=== PATIENT | female | born 1975 | race Caucasian/White ===

== ENCOUNTER 2017-04-01 18:45 | Emergency (ER) | payer SELFPAY ==
--- NOTE | 2017-04-01 19:05 | ED NURSING NOTES ---
Clinical Report - Nurses [facility] [address] [place] [address] 04/01/2017 18:47 Patient: KAYKAY MORRIS TRIAGE Triage time 18:51. Acuity: LEVEL 4. Chief Complaint: RIGHT EAR PAIN. 18:56 04/01/17. Alert. No acute distress. SEPSIS SCREEN: Sepsis Screen. Negative (no infection suspected/documented). SRIKANTH COMA SCORE: Srikanth Coma Scale: 15- eyes open spontaneously (4); best verbal response- oriented x 4 (5); best motor response- obeys commands (6). --18:56 Mili Delong R.N. 18:51 04/01/17. BP: 148/78. HR: 103. RR: 15. O2 saturation: 95%. Temp: 98 F. Pain level now: 12/06. --18:56 Mili Delong R.N. Weight: 58.5 kg stated. Height/Length: 60 inches Per Patient. BMI: 25.2. --18:56 Mili Delong R.N. Medications None. --18:53 Mili Delong R.N. Allergies None. --18:54 Mili Delong R.N. History Historian: patient. [facility] This started today. ( Patient states she has had a cold over the past couple days. She reports she woke up this morning with R ear pain. She states she felt a "pop" in her ear this afternoon and "blood came out". She feels like "it is still leaking"). She has had a nasal discharge and ear drainage. ( cough). PAST MEDICAL HX: Immunizations: up-to-date. Denies current . SOCIAL HX: Heavy tobacco smoker- less than 1 pack per day. No alcohol use or drug use. FALL RISK ASSESSMENT: Fall risk assessment completed. No fall risk identified. NUTRITIONAL RISK ASSESSMENT: The nutritional risk assessment revealed no deficiencies. FUNCTIONAL ASSESSMENT: Functional assessment: no impairments noted. LEARNING NEEDS ASSESSMENT: The learning needs assessment revealed no barriers. SKIN INTEGRITY ASSESSMENT: Skin integrity risk assessment completed. No skin integrity risk identified. --18:56 Mili Delong R.N. PROBLEMS: Leukocytosis. Nausea. Depression. Prior Injury, Same Area. Muscle Strain, Upper Extremity. Acute Pain. Lower Extremity Pain. Tetanus Status. Abdominal Pain. LNMP - Last Normal Menstrual Period. Diverticulitis. Endometriosis. --18:54 Mili Delong R.N. ADDITIONAL SURGERIES: . Hysterectomy. Tubal Ligation. --18:54 Mili Delong R.N. Interventions ID band on patient. To treatment room. --18:56 Mili Delong R.N. PHYSICAL ASSESSMENT 18:58 04/01/17. Ambulatory to room. GENERAL / NEURO / PSYCH: Alert. Appears in no acute distress. HEENT: No facial asymmetry noted. Pupils equal, round and reactive to light. EOM intact. Erythema and pain upon movement of the right auricle. (no drainage noted). Pharynx within normal limits. RESPIRATORY: Respirations not labored. CVS: Capillary refill less than 2 seconds. SKIN: Skin is warm and dry. --18:58 Mili Delong R.N. NURSING PROGRESS NOTES 18:58 04/01/17. Two patient identifiers checked. Call light placed in reach. Bed placed in lowest position. Brakes of bed on. --18:58 Mili Delong R.N. DISPOSITION / DISCHARGE 19:08 04/01/17. No learning barriers present. Discharge instructions provided and reviewed with the patient. Reviewed warnings. Reviewed medication(s). Treatments reviewed. Reviewed referrals. Patient verbalized understanding. Written instructions provided in Lao. The patient was discharged home. She left the Emergency Department ambulatory and via private vehicle. Patient driving. --19:08 Mili Delong R.N. 18:51 04/01/17. BP: 148/78. HR: 103. RR: 15. O2 saturation: 95%. Temp: 98 F. Pain level now: 12/06. --19:08 Mili Delong R.N. Locked/Released at 04/01/2017 22:55 by Mili Delong R.N.
--- NOTE | 2017-04-01 19:05 | ED CLINICAL REPORT ---
Clinical Report - Physicians/Mid Levels [facility] [address] [place] [address] 04/01/2017 18:47 Patient: KAYKAY MORRIS Time Seen: 1900Jul 2016. Arrived- By private vehicle. Historian- patient. HISTORY OF PRESENT ILLNESS Chief Complaint: EARACHE. This started today. Location- right ear. The pain is described as moderate. (Patient Reports Cold Symptoms, Rhinorrhea Congested Dry Cough over the Last 10 Days, Has Been Taking [id number]-[id number] Medications, Symptoms Minimally Improving. Patient Reports Developed Right Ear Pain This Morning, with a Flushed Sensation to the Right Ear and Drainage.). REVIEW OF SYSTEMS No cough, difficulty breathing, vomiting or abdominal pain. All systems otherwise negative, except as recorded above. PAST HISTORY Problems: Leukocytosis. Nausea. Depression. Prior Injury, Same Area. Muscle Strain, Upper Extremity. Acute Pain. Lower Extremity Pain. Tetanus Status. Abdominal Pain. LNMP - Last Normal Menstrual Period. Diverticulitis. Endometriosis. Additional Surgeries: . Hysterectomy. Tubal Ligation. Medications: None. Allergies: None. SOCIAL HISTORY Smoker- current status unknown. No alcohol use or drug use. ADDITIONAL NOTES The nursing notes have been reviewed. PHYSICAL EXAM Vital Signs: 04/01/2017 18:51 BP: 148/78. HR: 103. RR: 15. O2 saturation: 95%. Temp: 98 F. Pain level now: 3/10. Appearance: Alert. Ear (left): No erythema of the external canal, swelling of the external canal, erythema of the tympanic membrane, fluid behind the tympanic membrane or bulging of the tympanic membrane. Throat: Mouth ulcerations present. Tonsillar exudate present. Pharynx normal. Ear (right): There is perforation of the tympanic membrane. No erythema of the external canal. Neck: Normal inspection. CVS: Normal heart rate and rhythm. Heart sounds normal. Respiratory: No respiratory distress. Breath sounds normal. Skin: Skin warm. Normal skin color. Neuro: Oriented X 3. PROGRESS AND PROCEDURES Course of Care: Discussed Water Precautions of the Right Ear, As Well As Antibiotic Use, and the Patient's Recent Illness. Lungs Clear. No Sinus Tenderness. Patient Very Stable. Follow up Outpatient As Needed. Patient Understands Need to f/u with Ear Nose and Throat. No mastoid tenderness. Patient is stable. The patient's symptoms are unchanged. Patient/family counseled. Disposition: Discharged. CLINICAL IMPRESSION Acute perforation of the right tympanic membrane. INSTRUCTIONS Drink plenty of fluids. Prescription Medications: Hydrocodone/APAP 5mg / 325mg: take 1 orally every 6 hours. Dispense ten (10). No refill. Floxin Otic: generic, To. R. Ear Instill 2 to 3 drops once daily until complete closure of perforation is confirmed . 10 mL. Follow-up: Follow up with a specialist. Understanding of the discharge instructions verbalized by patient. Follow-up with: Anand Bernardo MD, ENT, , [address], , [place], [id number] Follow up in three weeks. Call for an appointment. (Electronically signed by Kathie Moran P.A.-C 04/01/2017 19:26)
--- NOTE | 2017-04-01 19:05 | ED CLINICAL REPORT ---
Clinical Report - Physicians/Mid Levels [facility] [address] [place] [address] 04/01/2017 18:47 Patient: KAYKAY MORRIS Time Seen: 1900Jul 2016. Arrived- By private vehicle. Historian- patient. HISTORY OF PRESENT ILLNESS Chief Complaint: EARACHE. This started today. Location- right ear. The pain is described as moderate. (Patient Reports Cold Symptoms, Rhinorrhea Congested Dry Cough over the Last 10 Days, Has Been Taking Akfa-Jof-Rrdunbi Medications, Symptoms Minimally Improving. Patient Reports Developed Right Ear Pain This Morning, with a Flushed Sensation to the Right Ear and Drainage.). REVIEW OF SYSTEMS No cough, difficulty breathing, vomiting or abdominal pain. All systems otherwise negative, except as recorded above. PAST HISTORY Problems: Leukocytosis. Nausea. Depression. Prior Injury, Same Area. Muscle Strain, Upper Extremity. Acute Pain. Lower Extremity Pain. Tetanus Status. Abdominal Pain. LNMP - Last Normal Menstrual Period. Diverticulitis. Endometriosis. Additional Surgeries: . Hysterectomy. Tubal Ligation. Medications: None. Allergies: None. SOCIAL HISTORY Smoker- current status unknown. No alcohol use or drug use. ADDITIONAL NOTES The nursing notes have been reviewed. PHYSICAL EXAM Vital Signs: 04/01/2017 18:51 BP: 148/78. HR: 103. RR: 15. O2 saturation: 95%. Temp: 98 F. Pain level now: 3/10. Appearance: Alert. Ear (left): No erythema of the external canal, swelling of the external canal, erythema of the tympanic membrane, fluid behind the tympanic membrane or bulging of the tympanic membrane. Throat: Mouth ulcerations present. Tonsillar exudate present. Pharynx normal. Ear (right): There is perforation of the tympanic membrane. No erythema of the external canal. Neck: Normal inspection. CVS: Normal heart rate and rhythm. Heart sounds normal. Respiratory: No respiratory distress. Breath sounds normal. Skin: Skin warm. Normal skin color. Neuro: Oriented X 3. PROGRESS AND PROCEDURES Course of Care: Discussed Water Precautions of the Right Ear, As Well As Antibiotic Use, and the Patient's Recent Illness. Lungs Clear. No Sinus Tenderness. Patient Very Stable. Follow up Outpatient As Needed. Patient Understands Need to f/u with Ear Nose and Throat. No mastoid tenderness. Patient is stable. The patient's symptoms are unchanged. Patient/family counseled. Disposition: Discharged. CLINICAL IMPRESSION Acute perforation of the right tympanic membrane. INSTRUCTIONS Drink plenty of fluids. Prescription Medications: Hydrocodone/APAP 5mg / 325mg: take 1 orally every 6 hours. Dispense ten (10). No refill. Floxin Otic: generic, To. R. Ear Instill 2 to 3 drops once daily until complete closure of perforation is confirmed . 10 mL. Follow-up: Follow up with a specialist. Understanding of the discharge instructions verbalized by patient. Follow-up with: Anand Bernardo MD, ENT, , [address], , [place], [id number] Follow up in three weeks. Call for an appointment. (Electronically signed by Kathie Moran P.A.-C 04/01/2017 19:26)
--- NOTE | 2017-04-01 19:05 | ED NURSING NOTES ---
Clinical Report - Nurses [facility] [address] [place] [address] 04/01/2017 18:47 Patient: KAYKAY MORRIS TRIAGE Triage time 18:51. Acuity: LEVEL 4. Chief Complaint: RIGHT EAR PAIN. 18:56 04/01/17. Alert. No acute distress. SEPSIS SCREEN: Sepsis Screen. Negative (no infection suspected/documented). SRIKANTH COMA SCORE: Srikanth Coma Scale: 15- eyes open spontaneously (4); best verbal response- oriented x 4 (5); best motor response- obeys commands (6). --18:56 Mili Delong R.N. 18:51 04/01/17. BP: 148/78. HR: 103. RR: 15. O2 saturation: 95%. Temp: 98 F. Pain level now: 12/06. --18:56 Mili Delong R.N. Weight: 58.5 kg stated. Height/Length: 60 inches Per Patient. BMI: 25.2. --18:56 Mili Delong R.N. Medications None. --18:53 Mili Delong R.N. Allergies None. --18:54 Mili Delong R.N. History Historian: patient. [facility] This started today. ( Patient states she has had a cold over the past couple days. She reports she woke up this morning with R ear pain. She states she felt a "pop" in her ear this afternoon and "blood came out". She feels like "it is still leaking"). She has had a nasal discharge and ear drainage. ( cough). PAST MEDICAL HX: Immunizations: up-to-date. Denies current . SOCIAL HX: Heavy tobacco smoker- less than 1 pack per day. No alcohol use or drug use. FALL RISK ASSESSMENT: Fall risk assessment completed. No fall risk identified. NUTRITIONAL RISK ASSESSMENT: The nutritional risk assessment revealed no deficiencies. FUNCTIONAL ASSESSMENT: Functional assessment: no impairments noted. LEARNING NEEDS ASSESSMENT: The learning needs assessment revealed no barriers. SKIN INTEGRITY ASSESSMENT: Skin integrity risk assessment completed. No skin integrity risk identified. --18:56 Mili Delong R.N. PROBLEMS: Leukocytosis. Nausea. Depression. Prior Injury, Same Area. Muscle Strain, Upper Extremity. Acute Pain. Lower Extremity Pain. Tetanus Status. Abdominal Pain. LNMP - Last Normal Menstrual Period. Diverticulitis. Endometriosis. --18:54 Mili Delong R.N. ADDITIONAL SURGERIES: . Hysterectomy. Tubal Ligation. --18:54 Mili Delong R.N. Interventions ID band on patient. To treatment room. --18:56 Mili Delong R.N. PHYSICAL ASSESSMENT 18:58 04/01/17. Ambulatory to room. GENERAL / NEURO / PSYCH: Alert. Appears in no acute distress. HEENT: No facial asymmetry noted. Pupils equal, round and reactive to light. EOM intact. Erythema and pain upon movement of the right auricle. (no drainage noted). Pharynx within normal limits. RESPIRATORY: Respirations not labored. CVS: Capillary refill less than 2 seconds. SKIN: Skin is warm and dry. --18:58 Mili Delong R.N. NURSING PROGRESS NOTES 18:58 04/01/17. Two patient identifiers checked. Call light placed in reach. Bed placed in lowest position. Brakes of bed on. --18:58 Mili Delong R.N. DISPOSITION / DISCHARGE 19:08 04/01/17. No learning barriers present. Discharge instructions provided and reviewed with the patient. Reviewed warnings. Reviewed medication(s). Treatments reviewed. Reviewed referrals. Patient verbalized understanding. Written instructions provided in Kyrgyz. The patient was discharged home. She left the Emergency Department ambulatory and via private vehicle. Patient driving. --19:08 Mili Delong R.N. 18:51 04/01/17. BP: 148/78. HR: 103. RR: 15. O2 saturation: 95%. Temp: 98 F. Pain level now: 12/06. --19:08 Mili Delong R.N. Locked/Released at 04/01/2017 22:55 by Mili Delong R.N.
--- NOTE | 2017-04-01 22:55 | ED MED RECONCILIATION SUMMARY ---
Patient: KAYKAY MORRIS Medication Reconciliation Report [facility] VisitID: [id number] [address] [place] [address] 41y, F Registration Date/Time: 04/01/2017 Weight: 58.5 kg Height/Length: 60 in. BMI: 25.2 ALLERGIES: None The patient's Home Medications are listed below: NONE. The source(s) of the original Home Medication information: Not obtained. The following Medications were given to the patient in the Emergency Department: None. The following Medications were prescribed to the patient: Hydrocodone/APAP 5mg / 325mg: take 1 orally every 6 hours. Dispense ten (10). No refill. -- Kathie Moran P.AIleana Floxin Otic: generic, To. R. Ear Instill 2 to 3 drops once daily until complete closure of perforation is confirmed . 10 mL. -- Kathie Moran P.AMaryann-Torey
--- NOTE | 2017-04-01 22:55 | ED DISCHARGE INSTRUCTIONS ---
Patient: KAYKAY MORRIS General Instructions [facility] VisitID: [id number] [address] [place] [address] 41y, F Registration Date/Time: 04/01/2017 Acute perforation of the right tympanic membrane. INSTRUCTIONS Drink plenty of fluids. Prescription Medications: Hydrocodone/APAP 5mg / 325mg: take 1 orally every 6 hours. Dispense ten (10). No refill. Floxin Otic: generic, To. R. Ear Instill 2 to 3 drops once daily until complete closure of perforation is confirmed . 10 mL. Follow-up: Follow up with a specialist. Understanding of the discharge instructions verbalized by patient. Follow-up with: Anand Bernardo MD, ENT, , [address] , [place], [id number] Follow up in three weeks. Call for an appointment. ADDITIONAL INFORMATION Ruptured Eardrum: Traumatic The eardrum is a thin membrane about one inch from the opening of the ear canal. It is easily injured by putting pencils, sticks, krys-pins or Q-tips into the ear canal. It is also injured by a loud noise close to the ear or a slap to the ear. This will cause pain and some hearing loss on that side. There may be some clear or bloody drainage the first day. If no infection is present, then antibiotics are not needed. The goal is to keep the ear dry and clean until the eardrum heals. Normal hearing returns in most cases, but a follow-up exam with an nuclear powerplant mechanic is advised (Ear, Nose & Throat doctor). Home Care: Keep a cotton plug in the ear to keep it clean and protect the inner ear. Do not put any drops into your ear unless prescribed by your doctor. Do not get water in your ear when showering or bathing. No swimming until approved by your doctor. Pain control: Unless another medicine was prescribed for pain:Children may use acetaminophen (Tylenol) for fever, fussiness or discomfort. In infants over six months of age, you may give ibuprofen (Children's Motrin) instead of Tylenol. [NOTE: If your child has chronic liver or kidney disease or ever had a stomach ulcer or GI bleeding, talk with your doctor before using these medicines.] (Aspirin should never be used in anyone under 18 years of age who is ill with a fever. It may cause severe liver damage.)Adults may use acetaminophen (Tylenol) or ibuprofen (Motrin, Advil).[NOTE: If you have chronic liver or kidney disease or ever had a stomach ulcer or GI bleeding, talk with your doctor before using these medicines.] Follow Up with your doctor within the next two weeks or as directed by our staff to ensure that the eardrum is healing. A hearing test should be done after the eardrum has healed to be sure your hearing has returned to normal Get Prompt Medical Attention if any of the following occur: Fever of 100.4F (38C) oral or higher, not better with fever medication Fluid drainage from the ear for more than 24 hours Increasing ear pain Headache or dizziness Hydrocodone Bitartrate, Acetaminophen Oral tablet What is this medicine? ACETAMINOPHEN; HYDROCODONE (a set a LISA price fen; eldon droe KOE done) is a pain reliever. It is used to treat mild to moderate pain. How should I use this medicine? Take this medicine by mouth. Swallow it with a full glass of water. Follow the directions on the prescription label. If the medicine upsets your stomach, take the medicine with food or milk. Do not take more than you are told to take. Talk to your satellite instruction facilitator regarding the use of this medicine in children. This medicine is not approved for use in children. What side effects may I notice from receiving this medicine? Side effects that you should report to your doctor or health home care giver as soon as possible: allergic reactions like skin rash, itching or hives, swelling of the face, lips, or tongue breathing problems confusion feeling faint or lightheaded, falls stomach pain yellowing of the eyes or skin Side effects that usually do not require medical attention (report to your doctor or health home care giver if they continue or are bothersome): nausea, vomiting stomach upset What may interact with this medicine? alcohol antihistamines isoniazid medicines for depression, anxiety, or psychotic disturbances medicines for sleep muscle relaxants naltrexone narcotic medicines (opiates) for pain phenobarbital ritonavir tramadol What if I miss a dose? If you miss a dose, take it as soon as you can. If it is almost time for your next dose, take only that dose. Do not take double or extra doses. Where should I keep my medicine? Keep out of the reach of children. This medicine can be abused. Keep your medicine in a safe place to protect it from theft. Do not share this medicine with anyone. Selling or giving away this medicine is dangerous and against the law. Store at room temperature between 15 and 30 degrees C (59 and 86 degrees F). Protect from light. Keep container tightly closed. Throw away any unused medicine after the expiration date. Discard unused medicine and used packaging carefully. Pets and children can be harmed if they find used or lost packages. What should I tell my health care provider before I take this medicine? They need to know if you have any of these conditions: brain tumor Crohn's disease, inflammatory bowel disease, or ulcerative colitis drink more than 3 alcohol-containing drinks per day drug abuse or addiction head injury heart or circulation problems kidney disease or problems going to the bathroom liver disease lung disease, asthma, or breathing problems an unusual or allergic reaction to acetaminophen, hydrocodone, other opioid analgesics, other medicines, foods, dyes, or preservatives or trying to get breast-feeding What should I watch for while using this medicine? Tell your doctor or health home care giver if your pain does not go away, if it gets worse, or if you have new or a different type of pain. You may develop tolerance to the medicine. Tolerance means that you will need a higher dose of the medicine for pain relief. Tolerance is normal and is expected if you take the medicine for a long time. Do not suddenly stop taking your medicine because you may develop a severe reaction. Your body becomes used to the medicine. This does NOT mean you are addicted. Addiction is a behavior related to getting and using a drug for a non-medical reason. If you have pain, you have a medical reason to take pain medicine. Your doctor will tell you how much medicine to take. If your doctor wants you to stop the medicine, the dose will be slowly lowered over time to avoid any side effects. You may get drowsy or dizzy when you first start taking the medicine or change doses. Do not drive, use machinery, or do anything that may be dangerous until you know how the medicine affects you. Stand or sit up slowly. There are different types of narcotic medicines (opiates) for pain. If you take more than one type at the same time, you may have more side effects. Give your health care provider a list of all medicines you use. Your doctor will tell you how much medicine to take. Do not take more medicine than directed. Call emergency for help if you have problems breathing. The medicine will cause constipation. Try to have a bowel movement at least every 2 to 3 days. If you do not have a bowel movement for 3 days, call your doctor or health home care giver. Too much acetaminophen can be very dangerous. Do not take Tylenol (acetaminophen) or medicines that contain acetaminophen with this medicine. Many non-prescription medicines contain acetaminophen. Always read the labels carefully. You have been given the following additional information: Ruptured Tm, Traumatic Hydrocodone Bitartrate, Acetaminophen Oral tablet (Electronically signed by Kathie Moran P.A.-C 04/01/2017 19:26)
--- NOTE | 2017-04-01 22:55 | ED MAR SUMMARY ---
..... Medication Administration Record [facility] [address], [place] [id number] Patient: KAYKAY MORRIS Visit ID: [id number] 41y, F Weight: 58.5 kg Height/Length: 60 in BMI: 25.2 ALLERGIES: None
--- NOTE | 2017-04-01 22:55 | ED MED RECONCILIATION SUMMARY ---
Patient: KAYKAY MORRIS Medication Reconciliation Report [facility] VisitID: [id number] [address] [place] [address] 41y, F Registration Date/Time: 04/01/2017 Weight: 58.5 kg Height/Length: 60 in. BMI: 25.2 ALLERGIES: None The patient's Home Medications are listed below: NONE. The source(s) of the original Home Medication information: Not obtained. The following Medications were given to the patient in the Emergency Department: None. The following Medications were prescribed to the patient: Hydrocodone/APAP 5mg / 325mg: take 1 orally every 6 hours. Dispense ten (10). No refill. -- Kathie Moran P.AIleana Floxin Otic: generic, To. R. Ear Instill 2 to 3 drops once daily until complete closure of perforation is confirmed . 10 mL. -- Kathie Moran P.AMaryann-Torey
--- NOTE | 2017-04-01 22:55 | ED DISCHARGE INSTRUCTIONS ---
Patient: KAYKAY MORRIS General Instructions [facility] VisitID: [id number] [address] [place] [address] 41y, F Registration Date/Time: 04/01/2017 Acute perforation of the right tympanic membrane. INSTRUCTIONS Drink plenty of fluids. Prescription Medications: Hydrocodone/APAP 5mg / 325mg: take 1 orally every 6 hours. Dispense ten (10). No refill. Floxin Otic: generic, To. R. Ear Instill 2 to 3 drops once daily until complete closure of perforation is confirmed . 10 mL. Follow-up: Follow up with a specialist. Understanding of the discharge instructions verbalized by patient. Follow-up with: Anand Bernardo MD, ENT, , [address] , [place], [id number] Follow up in three weeks. Call for an appointment. ADDITIONAL INFORMATION Ruptured Eardrum: Traumatic The eardrum is a thin membrane about one inch from the opening of the ear canal. It is easily injured by putting pencils, sticks, krys-pins or Q-tips into the ear canal. It is also injured by a loud noise close to the ear or a slap to the ear. This will cause pain and some hearing loss on that side. There may be some clear or bloody drainage the first day. If no infection is present, then antibiotics are not needed. The goal is to keep the ear dry and clean until the eardrum heals. Normal hearing returns in most cases, but a follow-up exam with an learning support aide is advised (Ear, Nose & Throat doctor). Home Care: Keep a cotton plug in the ear to keep it clean and protect the inner ear. Do not put any drops into your ear unless prescribed by your doctor. Do not get water in your ear when showering or bathing. No swimming until approved by your doctor. Pain control: Unless another medicine was prescribed for pain:Children may use acetaminophen (Tylenol) for fever, fussiness or discomfort. In infants over six months of age, you may give ibuprofen (Children's Motrin) instead of Tylenol. [NOTE: If your child has chronic liver or kidney disease or ever had a stomach ulcer or GI bleeding, talk with your doctor before using these medicines.] (Aspirin should never be used in anyone under 18 years of age who is ill with a fever. It may cause severe liver damage.)Adults may use acetaminophen (Tylenol) or ibuprofen (Motrin, Advil).[NOTE: If you have chronic liver or kidney disease or ever had a stomach ulcer or GI bleeding, talk with your doctor before using these medicines.] Follow Up with your doctor within the next two weeks or as directed by our staff to ensure that the eardrum is healing. A hearing test should be done after the eardrum has healed to be sure your hearing has returned to normal Get Prompt Medical Attention if any of the following occur: Fever of 100.4F (38C) oral or higher, not better with fever medication Fluid drainage from the ear for more than 24 hours Increasing ear pain Headache or dizziness Hydrocodone Bitartrate, Acetaminophen Oral tablet What is this medicine? ACETAMINOPHEN; HYDROCODONE (a set a LISA price fen; eldon droe KOE done) is a pain reliever. It is used to treat mild to moderate pain. How should I use this medicine? Take this medicine by mouth. Swallow it with a full glass of water. Follow the directions on the prescription label. If the medicine upsets your stomach, take the medicine with food or milk. Do not take more than you are told to take. Talk to your business transformation manager regarding the use of this medicine in children. This medicine is not approved for use in children. What side effects may I notice from receiving this medicine? Side effects that you should report to your doctor or health career development director as soon as possible: allergic reactions like skin rash, itching or hives, swelling of the face, lips, or tongue breathing problems confusion feeling faint or lightheaded, falls stomach pain yellowing of the eyes or skin Side effects that usually do not require medical attention (report to your doctor or health career development director if they continue or are bothersome): nausea, vomiting stomach upset What may interact with this medicine? alcohol antihistamines isoniazid medicines for depression, anxiety, or psychotic disturbances medicines for sleep muscle relaxants naltrexone narcotic medicines (opiates) for pain phenobarbital ritonavir tramadol What if I miss a dose? If you miss a dose, take it as soon as you can. If it is almost time for your next dose, take only that dose. Do not take double or extra doses. Where should I keep my medicine? Keep out of the reach of children. This medicine can be abused. Keep your medicine in a safe place to protect it from theft. Do not share this medicine with anyone. Selling or giving away this medicine is dangerous and against the law. Store at room temperature between 15 and 30 degrees C (59 and 86 degrees F). Protect from light. Keep container tightly closed. Throw away any unused medicine after the expiration date. Discard unused medicine and used packaging carefully. Pets and children can be harmed if they find used or lost packages. What should I tell my health care provider before I take this medicine? They need to know if you have any of these conditions: brain tumor Crohn's disease, inflammatory bowel disease, or ulcerative colitis drink more than 3 alcohol-containing drinks per day drug abuse or addiction head injury heart or circulation problems kidney disease or problems going to the bathroom liver disease lung disease, asthma, or breathing problems an unusual or allergic reaction to acetaminophen, hydrocodone, other opioid analgesics, other medicines, foods, dyes, or preservatives or trying to get breast-feeding What should I watch for while using this medicine? Tell your doctor or health career development director if your pain does not go away, if it gets worse, or if you have new or a different type of pain. You may develop tolerance to the medicine. Tolerance means that you will need a higher dose of the medicine for pain relief. Tolerance is normal and is expected if you take the medicine for a long time. Do not suddenly stop taking your medicine because you may develop a severe reaction. Your body becomes used to the medicine. This does NOT mean you are addicted. Addiction is a behavior related to getting and using a drug for a non-medical reason. If you have pain, you have a medical reason to take pain medicine. Your doctor will tell you how much medicine to take. If your doctor wants you to stop the medicine, the dose will be slowly lowered over time to avoid any side effects. You may get drowsy or dizzy when you first start taking the medicine or change doses. Do not drive, use machinery, or do anything that may be dangerous until you know how the medicine affects you. Stand or sit up slowly. There are different types of narcotic medicines (opiates) for pain. If you take more than one type at the same time, you may have more side effects. Give your health care provider a list of all medicines you use. Your doctor will tell you how much medicine to take. Do not take more medicine than directed. Call emergency for help if you have problems breathing. The medicine will cause constipation. Try to have a bowel movement at least every 2 to 3 days. If you do not have a bowel movement for 3 days, call your doctor or health career development director. Too much acetaminophen can be very dangerous. Do not take Tylenol (acetaminophen) or medicines that contain acetaminophen with this medicine. Many non-prescription medicines contain acetaminophen. Always read the labels carefully. You have been given the following additional information: Ruptured Tm, Traumatic Hydrocodone Bitartrate, Acetaminophen Oral tablet (Electronically signed by Kathie Moran P.A.-C 04/01/2017 19:26)
--- NOTE | 2017-04-01 22:55 | ED MAR SUMMARY ---
..... Medication Administration Record [facility] [address], [place] [id number] Patient: KAYKAY MORRIS Visit ID: [id number] 41y, F Weight: 58.5 kg Height/Length: 60 in BMI: 25.2 ALLERGIES: None
== END 2017-04-01 19:08 | disposition home or self-care (01) ==
LOC: ED SRH 18:45
DX: H72.91 Unspecified perforation of tympanic membrane, right ear (principal); F17.210 Nicotine dependence, cigarettes, uncomplicated